=== PATIENT | male | born 1990 | race Asian ===

== ENCOUNTER 2018-10-17 07:17 | Emergency (ER) | payer SELFPAY ==
[2018-10-17 07:39] VITALS: BP 128/86
[2018-10-17] MEDS ORDERED: LIDOCAINE 1% HCL (LOCAL ANESTH.) INJ 20ML MDV IJ ONE (07:45)
[2018-10-17] MEDS ORDERED: ACETAMINOPHEN 500 MG TAB PO ONE (08:30)
== END 2018-10-17 08:58 | disposition home or self-care (01) ==
LOC: EDBD 07:17 → ER 07:17
DX: S01.511A Laceration without foreign body of lip, initial encounter (principal); V43.52XA Car driver injured in collision with other type car in traffic accident, initial encounter; Y93.89 Activity, other specified; Y99.8 Other external cause status; Y92.410 Unspecified street and highway as the place of occurrence of the external cause
CPT/HCPCS: 12014; 70486; 99284; J2001